=== PATIENT | female | born 1980 | race Two or more races ===

== ENCOUNTER 2025-03-27 05:22 | Day surgery (SDC) | payer OTHER ==
[~2025-03-27] VITALS: Ht 157.5 cm; Wt 54.4 kg
[2025-03-27] MEDS ORDERED: PRENATABS FA T1 EACH PO (05:44)
[2025-03-27] MEDS ORDERED: RINGERS SOLUTION,LACTATED 1,000 ML IV ONE (08:00)
[2025-03-27 09:01] LABS: BASO % 0.6 % (0.1-1.2); EOS # 0.08 (0.04-0.54); EOS % 1.2 % (0.7-7.0); LYMPH # 2.79 (1.18-3.74); LYMPH % 42.8 % (19.3-53.1); MEAN PLATELET VOLUME 11.00 fl (9.4-12.4); MONO # 0.37 (0.24-0.82); MONO % 5.7 % (4.7-12.5); NEUT # 3.23 (1.56-6.13); NEUT % 49.5 % (34.0-71.1); RED CELL DISTRIBUTION WIDTH 11.9 % (11.6-14.4)
[2025-03-27 09:38] LABS: ALT/SGPT 23.0 U/L (12-78); AST/SGOT 18.0 U/L (15-37); BILIRUBIN TOTAL 0.83 mg/dL (0.3-1.2); BILIRUBIN,CONJUGATED 0.22 mg/dL (0.0-0.2)
[2025-03-27 10:11] LABS: BUN CREA RATIO 18.0 (7.0-25.0); CREATININE SERUM 0.55 mg/dL (0.55-1.02); GFR 121.21; GLUCOSE FASTING 84.0 mg/dL (65-100); OSMOLALITY SERUM 274.0 MOSM/KG (275-295)
[2025-03-27 10:29] LABS: INR 1.04
[2025-03-27 11:02] LABS: URINE APPEARANCE Clear; URINE BILIRRUBIN Negative (NEGATIVE); URINE BLOOD Negative; URINE COLOR Yellow; URINE GLUCOSE Negative (NEGATIVE); URINE KETONE Negative (NEGATIVE); URINE LEUKOCYTE Negative; URINE NITRATE Negative; URINE PROTEIN Negative (NEGATIVE); URINE UROBILINOGEN 0.2 E.U./dl
[2025-03-27 11:06] LABS: URINE BACTERIA 17.1 uL (0.0-1933); URINE EPITHELIAL CELLS 4.1 uL (0.0-38.8); URINE WBC 3.2 uL (0.0-23.2)
[2025-03-27 11:36] LABS: URINE CAST 0.00 uL (0.0-1.40); URINE RBC 0.7 uL (0.0-20.8)
[2025-03-27] MEDS ORDERED: CHLORHEXIDINE GLUCONATE 120 ML BOTTLE TOP ONE (12:04)
[2025-03-27] MEDS ORDERED: POVIDONE-IODINE 118 ML BOTT TOP ONE (13:11)
[2025-03-27] MEDS ORDERED: OXYTOCIN 10 UNITS/ML VIAL ONE (13:45)
[2025-03-27] MEDS ORDERED: FF) RHO(D) IMMUNE GLOBULIN (POM) IM ONE (14:45)
[2025-03-27 21:22] VITALS: BP 119/75; O2SAT 100
== END 2025-03-27 20:10 | disposition home or self-care (01) ==
LOC: ER 05:22 → CIR.AMB 05:22 → O/R 10:18 → ER 10:18 → OB/GYN 10:18 → O/R 14:46 → OB/GYN 14:46 → O/R 16:05 → CIR.AMB 20:10 → O/R 20:10
PROVIDERS: ATTEND Emergency Medicine
DX: O02.1 Missed abortion (principal); Z88.8 Allergy status to other drugs, medicaments and biological substances